=== PATIENT | male | born 1990 | race African-American/Black ===

== ENCOUNTER 2017-08-20 12:18 | Emergency (ER) | payer SELFPAY ==
[~2017-08-20] VITALS: Ht 167.6 cm; Wt 86.6 kg
[~2017-08-20 12:18] MED LIST: ALBUAER19 INH
[2017-08-20 12:23] VITALS: TEMP 37; Ht 167.6 cm; Wt 86.6 kg
[2017-08-20] MEDS ORDERED: ALBUTEROL 0.083% NEBU SOLN 3 ML VIAL INH STA (12:36)
[2017-08-20] MEDS ORDERED: VNTHFA/IN INH (13:05)
--- NOTE | 2017-08-20 13:18 | DIAGNOSTIC IMAGING REPORT ---
CHEST ONE VIEW PORTABLE HISTORY: cough COMPARISON: Chest 07/05/2016. FINDINGS: The lungs are clear. Cardiac silhouette is normal in size. No pleural effusions. No pneumothorax. IMPRESSION: No acute process. Electronically signed by: Suresh Glass M.D. 08/20/2017 1:17 PM Dictated Date/Time: 08/20/2017 1:16 PM
[2017-08-20] MEDS ORDERED: PRED20TA PO (13:55)
[2017-08-20] MEDS ORDERED: ZTHM250 PO (13:55)
[2017-08-20] MEDS ORDERED: AZITHROMYCIN 250 MG TAB PO ONE (14:00)
[2017-08-20 14:10] VITALS: BP 143/65; PULSE 84; O2SAT 95
--- NOTE | 2017-08-20 15:20 | EMERGENCY ROOM VISIT NOTE ---
History Report prepared by Cony: Deb Moy Under the Supervision of: Dr. Leonardo Christensen D.O. First contact with patient: 12:26 Chief Complaint: COUGH Stated Complaint: COUGH Nursing Triage Summary: Patient presents with c/o chest tightness and wheezing and productive cough He does have a history of asthma He has used his inhalers without relief of symptoms History of Present Illness The patient is a 27 year old male who presents to the Emergency Room with complaints of a persistent cough that began two days ago. The patient states that at the same time he developed a sore throat. He states that he feels he is coughing due to his sore throat. The patient states that his cough is productive, noting that he is bringing up white sputum. He reports a history of asthma, noting that he takes his Albuterol inhaler as needed. The patient states that his asthma exacerbates with change in temperature and season. He states that he has been feeling short of breath and reports chest pain due to his cough. The patient denies any sick contacts. He denies any other medical problems other than his asthma. The patient denies having a PCP. Pt denies headache, change in vision, fevers, runny nose, ear pain, congestion, nausea, vomiting, diarrhea, pain with urination, and melena. Source of History: patient Onset: two days ago Position: other (global) Quality: other (cough) Timing: other (persistent) Associated Symptoms: + sorethroat, + chest pain, + SOB Review of Systems See HPI for pertinent positives & negatives. A total of 10 systems reviewed and were otherwise negative. Past Medical & Surgical Medical Problems: (1) Asthma, Unspecified (2) Environmental and seasonal allergies (3) Insect bite of arm, left, infected (4) Insect bites (5) Insect bites (6) Uvulitis Family History Diabetes mellitus FH: cancer FH: heart disease Hypertension Seizures Social History Smoking Status: Never Smoker Smokeless Tobacco Use: No Alcohol Use: occasionally Marital Status: single Occupation Status: employed Current/Historical Medications Scheduled Azithromycin (Azithromycin), 250 MG PO DAILY Prednisone (Prednisone), 1 TAB PO DAILY Miscellaneous Medications Albuterol Hfa (Ventolin Hfa), 2 PUFFS INH Allergies Coded Allergies: Dust (Verified Allergy, Unknown, ., 08/20/17) Dust Mite Extract (Verified Allergy, Unknown, UNK, 08/20/17) Physical Exam Vital Signs Date Time Temp Pulse Resp B/P (MAP) Pulse Ox O2 Delivery O2 Flow Rate FiO2 08/20/17 14:10 84 143/65 95 08/20/17 12:23 37.0 80 20 135/87 93 Room Air Physical Exam GENERAL: alert, sitting up in bed, talking in full sentences, well appearing, well nourished, no distress, non-toxic EYE EXAM: normal conjunctiva. OROPHARYNX: no exudate, no erythema, lips, buccal mucosa, and tongue normal and mucous membranes are moist NECK: supple, no nuchal rigidity, no adenopathy, non-tender LUNGS: Mild fiant wheezing bilaterally. Normal chest wall mechanics HEART: no murmurs, S1 normal and S2 normal ABDOMEN: abdomen soft, non-tender, normo-active bowel sounds, no masses, no rebound or guarding. BACK: Back is symmetrical on inspection and there is no deformity, no midline tenderness, no CVA tenderness. SKIN: no rashes and no bruising UPPER EXTREMITIES: upper extremities are grossly normal. LOWER EXTREMITIES: No pitting edema. NEURO EXAM: Normal sensorium, cranial nerves II-XII grossly intact, normal speech, no gross weakness of arms, no gross weakness of legs. Medical Decision & Procedures ER Provider Diagnostic Interpretation: Radiology results as stated below per my review and the radiologist's interpretation: CHEST ONE VIEW PORTABLE HISTORY: cough COMPARISON: Chest 07/05/2016. FINDINGS: The lungs are clear. Cardiac silhouette is normal in size. No pleural effusions. No pneumothorax. IMPRESSION: No acute process. Electronically signed by: Suresh Glass M.D. 08/20/2017 1:17 PM Dictated Date/Time: 08/20/2017 1:16 PM Medications Administered Medications (Trade) Dose Ordered Sig/Michelle Route Start Time Stop Time Status Last Admin Dose Admin Albuterol Sulfate (Ventolin 0.083% 2.5MG/3ML Neb) 2.5 mg NOW STAT INH 08/20/17 12:36 08/20/17 12:37 DC 08/20/17 12:45 2.5 MG Prednisone (PredniSONE TAB) 60 mg NOW STAT PO 08/20/17 13:52 08/20/17 13:54 DC 08/20/17 14:07 60 MG Azithromycin (Zithromax Tab) 500 mg NOW ONCE PO 08/20/17 14:00 08/20/17 14:01 DC 08/20/17 14:08 500 MG ED Course ED COURSE: Vital signs were reviewed and showed hypertensive The patients medical record was reviewed The above diagnostic studies were performed and reviewed. ED treatments and interventions as stated above. 1228: The patient was evaluated in room B9. A complete history and physical examination was performed. 1236: Ordered Albuterol Sulfate 2.5 mg INH. 1352: Upon reevaluation, the patient has slight increase on wheeze with auscultation and is feeling better.I discussed my findings with the patient and he understands and agrees with the treatment plan. Based on the patients age, coexisting illnesses, exam and lab findings the decision to treat as an outpatient was made. The patient remained stable while under my care. The patient appeared well at the time of discharge. Ordered Prednisone 60 mg PO. 1400: Ordered Azithromycin 500 mg PO. Medical Decision Differential diagnoses includes but is not limited to pneumonia, bronchitis, COPD/Asthma exacerbation, pneumothorax, pulmonary embolism, congestive heart failure, acute coronary syndrome. Patient is a 27-year-old male that presents to ER for cough which has been present for the past 3 days. Patient complains of a whitish sputum. He also admits to a sore throat which he thinks is causing his cough. He does have a history of asthma. No fevers. Patient has been using his inhaler with improvement. Vitals are unremarkable. Chest x-ray shows no acute infiltrate. Patient was given a neb treatment and felt significant better. Rapid strep was negative. Patient was placed on steroids as he is feeling better and had increased wheezing following his neb treatment and azithromycin to follow-up with PCP. Discussed with Pt concerning signs and symptoms to watch out for. Pt was instructed to follow up with their PCP and discussed with the patient their option to return to the ED at anytime for persistent or worsening symptoms. The appropriate anticipatory guidance and out-patient management, including indications for return to the emergency department, were explained at length to the patient and understood. Medication Reconcilliation Current Medication List: was personally reviewed by me Blood Pressure Screening Patient's blood pressure: Elevated blood pressure Blood pressure disposition: Elevated BP felt to be situational, Did not require urgent referral Impression Primary Impression: Acute bronchitis Additional Impression: Asthma Scribe Attestation The scribe's documentation has been prepared under my direction and personally reviewed by me in its entirety. I confirm that the note above accurately reflects all work, treatment, procedures, and medical decision making performed by me. Departure Information Dispostion Home / Self-Care Prescriptions Prednisone (Prednisone) 20 Mg Tab 1 TAB PO DAILY for 4 Days, #4 TAB Prov: Leonardo Christensen, DO 08/20/17 Azithromycin (Azithromycin) 250 Mg Tab 250 MG PO DAILY, #4 Prov: Leonardo Christensen, DO 08/20/17 Referrals No Doctor, Assigned (PCP) Forms HOME CARE DOCUMENTATION FORM, IMPORTANT VISIT INFORMATION Patient Instructions Asthma - [facility], ED Bronchitis Asthmatic, My [facility] Additional Instructions Please follow up with your primary care doctor with in the next 24 hours. Any worsening of your symptoms, please return to the ED immediately. This includes any fevers greater than 100.4, worsening pain, chest pain, shortness breath, persistent nausea, vomiting, unable to eat or drink, or any other concerning signs or symptoms from your standpoint. Please take steroids and antibiotics as prescribed. Problem Qualifiers Primary Impression: Acute bronchitis Bronchitis organism: unspecified organism Qualified Codes: J20.9 - Acute bronchitis, unspecified Additional Impression: Asthma Asthma severity: unspecified severity Asthma complication type: uncomplicated Qualified Codes: J45.909 - Unspecified asthma, uncomplicated
== END 2017-08-20 14:10 | disposition home or self-care (01) ==
LOC: C.EDB 12:20
DX: J20.9 Acute bronchitis, unspecified (principal); J45.909 Unspecified asthma, uncomplicated; Z91.09 Other allergy status, other than to drugs and biological substances; Z83.3 Family history of diabetes mellitus; Z80.9 Family history of malignant neoplasm, unspecified; Z82.49 Family history of ischemic heart disease and other diseases of the circulatory system; Z82.0 Family history of epilepsy and other diseases of the nervous system